=== PATIENT | male | born 1940 | race Caucasian/White ===

== ENCOUNTER → 2018-10-01 | Outpatient (CLI) | payer MEDICARE | END | disposition home or self-care (01) | LOC: RAH 14:50 | PROVIDERS: ATTEND Internal Medicine | DX: R05 Cough (principal); R16.1 Splenomegaly, not elsewhere classified | CPT/HCPCS: 71250 ==

== ENCOUNTER → 2018-10-17 | Outpatient (CLI) | payer MEDICARE ==
[~2018-10-17] MED LIST: ALBUTEROL SULFATE 0.083% 2.5 MG/3 ML INH IH ONE
== END | disposition home or self-care (01) ==
LOC: RESP 09:01
PROVIDERS: ATTEND Internal Medicine
DX: R05 Cough (principal)
CPT/HCPCS: 94060; 94727; 94729

== ENCOUNTER 2020-05-18 09:40 | Day surgery (SDC) | payer OTHER ==
[2020-05-18] VITALS (20 sets, daily range): BP systolic 56–161; BP diastolic 54–79
[~2020-05-18] VITALS: Ht 172.7 cm; Wt 77.1 kg
[~2020-05-18 09:40] MED LIST changes: -ALBUTEROL SULFATE 0.083% 2.5 MG/3 ML INH IH ONE; +FOLIC ACID PO; +METO-408 PO; +MONT10TA96 PO; +PROSTA-METTO PO; +SERT50TA12 PO
[2020-05-18] MEDS ORDERED: SODIUM CHLORIDE 0.9% 1000ML 1,000 ML IV ONE (11:20)
[2020-05-18] MEDS ORDERED: SUCCINYLCHOLINE CHLORIDE 20 MG/ML 10 ML VIAL ONE (13:15)
[2020-05-18] MEDS ORDERED: PROPOFOL 10 MG/ML 20ML VIAL IV ONE (13:15)
[2020-05-18] MEDS ORDERED: LIDOCAINE HCL 2% 20ML ONE (13:15)
[2020-05-18] MEDS ORDERED: FENTANYL CITRATE PF 50 MCG/1 ML 2ML VIAL ONE (13:31)
[2020-05-18] MEDS ORDERED: GLYCOPYRROLATE 1 MG/5 ML SYRINGE ONE (13:31)
[2020-05-18] MEDS ORDERED: ESMOLOL HCL 10 MG/ML 10 ML VIAL ONE (13:31)
[2020-05-18] MEDS ORDERED: ROCURONIUM 10MG/1ML SYR 10 MG/ML ML ONE (13:31)
[2020-05-18] MEDS ORDERED: IPRATROPIUM/ALBUTEROL SULFATE 3 ML SOLUTION IH ONE (14:31)
[2020-05-18] MEDS ORDERED: MEPERIDINE-PF 25 MG/ML SYG ONE (14:33)
[2020-05-18 20:14] LABS: APPEARANCE BODY FLUID BLOODY (CLEAR); COLOR,BODY FLUID RED (LT YELLOW); SPECIMENTYPE,BODY FLUID LAVAGE; TOTAL VOLUME,BODY FLUID 15 mL
[2020-05-18 20:15] LABS: BODY FLUID WBC 50 /cu. mm.
[2020-05-18 20:16] LABS: BODY FLUID RBC 32750 /cu. mm.
[2020-05-18 21:11] LABS: BF LYMPHOCYTE 6 %; BF OTHER CELLS 4
== END 2020-05-18 16:00 | disposition home or self-care (01) ==
LOC: DAH 09:40
PROVIDERS: ATTEND Internal Medicine
DX: R91.8 Other nonspecific abnormal finding of lung field (principal); E11.9 Type 2 diabetes mellitus without complications; I25.10 Atherosclerotic heart disease of native coronary artery without angina pectoris; I11.0 Hypertensive heart disease with heart failure; I50.9 Heart failure, unspecified; J44.9 Chronic obstructive pulmonary disease, unspecified; Z85.118 Personal history of other malignant neoplasm of bronchus and lung; Z79.899 Other long term (current) drug therapy; Z20.828 Contact with and (suspected) exposure to other viral communicable diseases
CPT/HCPCS: 31624; 31625; 71045; 87071; 87101; 87116; 87205; 87206 ×2; 88104; 88112; 88305 ×2; 88312 ×2; 89051; 94640; A4215; A4221; A4222; A4223; A4606; A4620; A4663; C9803; J0330; J2175; J2704; J3490; J7030; U0003; 31622; 31623; 31628; 36415; 76000; J3010

== ENCOUNTER 2020-11-17 07:15 | Day surgery (SDC) | payer OTHER ==
[2020-11-11 12:22] LABS: BASOPHILS % (AUTO) 0.3 % (0.0-5.0); EOSINOPHILS % (AUTO) 1.3 % (0.0-8.0); HEMATOCRIT 41.1 % (42-54); LYMPHOCYTES % (AUTO) 5.2 % (21.0-51.0); MEAN CORPUSCULAR HEMOGLOBIN 26.9 pg (27.0-33.0); MEAN CORPUSCULAR HGB CONC 30.9 g/dL (32.0-36.0); MEAN CORPUSCULAR VOLUME 87.1 fL (79-99); MONOCYTES % (AUTO) 9.7 % (3.0-13.0); PLATELET COUNT (AUTO) 175 K/uL (130-400); RED BLOOD CELL COUNT(AUTO) 4.72 MIL/uL (4.50-6.20); RED CELL DISTRIBUTION WIDTH 14.8 % (11.0-15.5); WHITE BLOOD COUNT (AUTO) 7.1 K/uL (4.8-10.8)
[2020-11-11 12:32] LABS: INR 1.05 (0.85-1.15); PROTHROMBIN TIME 11.4 SEC (9.6-11.6)
[2020-11-11 12:34] LABS: PARTIAL THROMBOPLASTIN TIME 26.6 SEC (26.3-35.5)
[2020-11-11 12:35] LABS: BILIRUBIN,TOTAL 0.3 mg/dL (0.2-1.0); CREATININE 1.4 mg/dL (0.5-1.5); POTASSIUM 4.9 mmol/L (3.5-5.1); TOTAL PROTEIN, SERUM 6.7 g/dL (6.0-8.3)
[2020-11-16 09:24] VITALS: BP 119/65
[~2020-11-17] VITALS: Ht 172.7 cm; Wt 78.9 kg
[2020-11-17] VITALS (17 sets, daily range): BP systolic 103–158; BP diastolic 27–90
[~2020-11-17 07:15] MED LIST changes: +ALBU2.5V2 IH; -FOLIC ACID PO; -MONT10TA96 PO; -PROSTA-METTO PO; -SERT50TA12 PO; +VANCOMYCIN 1GM+NS 250ML 250 ML IV SCH
[2020-11-17] MEDS ORDERED: LIDOCAINE PF 2% 5ML ABBOJECT ONE (09:10)
[2020-11-17] MEDS ORDERED: SUCCINYLCHOLINE CHLORIDE 20 MG/ML 10 ML VIAL ONE (09:10)
[2020-11-17] MEDS ORDERED: PROPOFOL 10 MG/ML 20ML VIAL IV ONE (09:11)
[2020-11-17] MEDS ORDERED: ROCURONIUM 10MG/1ML SYR 10 MG/ML ML ONE (09:11)
[2020-11-17] MEDS ORDERED: FENTANYL CITRATE PF 50 MCG/1 ML 2ML VIAL ONE ×2 (09:11→12:54)
[2020-11-17] MEDS ORDERED: LIDOCAINE 1%-EPI 1:100,000 20 ML VIAL IJ ONE (09:38)
[2020-11-17] MEDS ORDERED: EPHEDRINE SULFATE 50 MG/ML AMPULE ONE (10:00)
[2020-11-17] MEDS ORDERED: MEPERIDINE-PF 25 MG/ML SYG ONE (11:49)
[2020-11-17] MEDS ORDERED: GLYCOPYRROLATE 1 MG/5 ML SYRINGE ONE (12:02)
[2020-11-17] MEDS ORDERED: NEOSTIGMINE 5MG/5ML SYR IV ONE (12:03)
[2020-11-17] MEDS ORDERED: PHENYLEPHRINE HCL 10 MG/ML 1ML VIAL IV ONE (12:31)
== END 2020-11-17 16:00 | disposition home or self-care (01) ==
LOC: DAH 07:15
PROVIDERS: ATTEND Otolaryngology Plastic Surgery within the Head & Neck
DX: C44.42 Squamous cell carcinoma of skin of scalp and neck (principal); Z88.0 Allergy status to penicillin; Z20.822 Contact with and (suspected) exposure to COVID-19; Z79.01 Long term (current) use of anticoagulants; Z79.899 Other long term (current) drug therapy
CPT/HCPCS: 11626; 15120; 15121; 36415; 80053; 85025; 85610; 85730; 93005; A4215; A4221; A4222; A4223; A4606; A4663; A6204; A6207; A6223; C9803; J0330; J2001; J2175; J2370; J2704; J2710; J3010 ×2; J3490 ×3; J7120; U0003

== ENCOUNTER 2020-12-30 06:24 | Day surgery (SDC) | payer OTHER ==
[2020-12-28 15:06] LABS: BASOPHILS % (AUTO) 0.7 % (0.0-5.0); EOSINOPHILS % (AUTO) 2.9 % (0.0-8.0); HEMATOCRIT 37.3 % (42-54); LYMPHOCYTES % (AUTO) 22.5 % (21.0-51.0); MEAN CORPUSCULAR HEMOGLOBIN 25.6 pg (27.0-33.0); MEAN CORPUSCULAR VOLUME 85.4 fL (79-99); MONOCYTES % (AUTO) 26.7 % (3.0-13.0); NEUTROPHILS % (AUTO) 46.2 % (40.0-77.0); PLATELET COUNT (AUTO) 186 K/uL (130-400); RED BLOOD CELL COUNT(AUTO) 4.37 MIL/uL (4.50-6.20); RED CELL DISTRIBUTION WIDTH 13.9 % (11.0-15.5); WHITE BLOOD COUNT (AUTO) 3.1 K/uL (4.8-10.8)
[2020-12-28 15:16] LABS: CREATININE 1.3 mg/dL (0.5-1.5); POTASSIUM 4.9 mmol/L (3.5-5.1)
[2020-12-28 15:18] LABS: INR 1.06 (0.85-1.15); PROTHROMBIN TIME 11.5 SEC (9.6-11.6)
[2020-12-28 15:19] LABS: PARTIAL THROMBOPLASTIN TIME 28.3 SEC (26.3-35.5)
[2020-12-29 13:22] VITALS: BP 164/69
[~2020-12-30] VITALS: Ht 172.7 cm; Wt 80.3 kg
[2020-12-30] VITALS (16 sets, daily range): BP systolic 115–150; BP diastolic 55–77
[~2020-12-30 06:24] MED LIST changes: -ALBU2.5V2 IH; -METO-408 PO; +METO25TA6 PO; -VANCOMYCIN 1GM+NS 250ML 250 ML IV SCH
[2020-12-30] MEDS ORDERED: PROPOFOL 10 MG/ML 20ML VIAL IV ONE (07:13)
[2020-12-30] MEDS ORDERED: LIDOCAINE PF 100MG/5ML (2%) SYRINGE 5ML ONE (07:13)
[2020-12-30] MEDS ORDERED: SUCCINYLCHOLINE CHLORIDE 20 MG/ML 10 ML VIAL ONE (07:13)
[2020-12-30] MEDS ORDERED: FENTANYL CITRATE PF 50 MCG/1 ML 2ML VIAL ONE (07:14)
[2020-12-30] MEDS ORDERED: MULT-1203 PO (07:20)
[2020-12-30] MEDS ORDERED: LACTATED RINGERS 1000ML 1,000 ML IV ONE (07:29)
[2020-12-30] MEDS ORDERED: CEFAZOLIN SODIUM 1 GM VIAL IVP ONE (08:00)
[2020-12-30] MEDS ORDERED: LIDOCAINE 1%-EPI 1:100,000 20 ML VIAL IJ SCH (08:00)
[2020-12-30] MEDS ORDERED: GLYCOPYRROLATE 1 MG/5 ML SYRINGE ONE (08:12)
[2020-12-30] MEDS ORDERED: BACITRACIN 28.4 GM OINT TP ONE (10:13)
== END 2020-12-30 12:05 | disposition home or self-care (01) ==
LOC: DAH 06:24
PROVIDERS: ATTEND Otolaryngology Plastic Surgery within the Head & Neck
DX: C44.42 Squamous cell carcinoma of skin of scalp and neck (principal); Z20.822 Contact with and (suspected) exposure to COVID-19; C77.0 Secondary and unspecified malignant neoplasm of lymph nodes of head, face and neck; Z79.899 Other long term (current) drug therapy; Z79.01 Long term (current) use of anticoagulants; Z88.0 Allergy status to penicillin; Z88.8 Allergy status to other drugs, medicaments and biological substances
CPT/HCPCS: 11622; 13120; 36415; 38500; 71045; 80048; 85025; 85610; 85730; 87635; 93005; A4215; A4221; A4222; A4223; A4606; A4649; A4663; A4930; A6260; A6446; C9803; J0330; J2001; J2704; J3010; J3490 ×2; J7120

== ENCOUNTER 2021-09-25 18:22 | Emergency (ER) | payer OTHER ==
[~2021-09-25] VITALS: Ht 172.7 cm; Wt 74.8 kg
[~2021-09-25 18:22] MED LIST changes: +MULT-1203 PO
[2021-09-25 18:31] VITALS: BP 152/67
[2021-09-25 18:54] LABS: BASOPHILS % (AUTO) 0.2 % (0.0-5.0); EOSINOPHILS % (AUTO) 0.2 % (0.0-8.0); HEMATOCRIT 34.6 % (42-54); LYMPHOCYTES % (AUTO) 3.9 % (21.0-51.0); MEAN CORPUSCULAR HEMOGLOBIN 28.9 pg (27.0-33.0); MEAN CORPUSCULAR HGB CONC 31.8 g/dL (32.0-36.0); MEAN CORPUSCULAR VOLUME 90.8 fL (79-99); MONOCYTES % (AUTO) 9.4 % (3.0-13.0); NEUTROPHILS % (AUTO) 85.9 % (40.0-77.0); PLATELET COUNT (AUTO) 213 K/uL (130-400); RED BLOOD CELL COUNT(AUTO) 3.81 MIL/uL (4.50-6.20); RED CELL DISTRIBUTION WIDTH 14.8 % (11.0-15.5); WHITE BLOOD COUNT (AUTO) 10.9 K/uL (4.8-10.8)
[2021-09-25 19:04] LABS: CREATININE 1.4 mg/dL (0.5-1.5); POTASSIUM 3.5 mmol/L (3.5-5.1)
[2021-09-25 19:13] LABS: ALBUMIN 3.3 g/dL (3.5-5.0); BILIRUBIN,TOTAL 0.4 mg/dL (0.2-1.0); TOTAL PROTEIN, SERUM 6.3 g/dL (6.0-8.3)
[2021-09-25 19:19] LABS: APPEARANCE,URINE Clear (CLEAR); BILIRUBIN,URINE Negative (NEGATIVE); COLOR,URINE Yellow (YELLOW); GLUCOSE, URINE (UA) Negative (NEGATIVE); KETONES,URINE Negative (NEGATIVE); LEUKOCYTE ESTERASE ,URINE Negative (NEGATIVE); NITRATE,URINE Negative (NEGATIVE); OCCULT BLOOD,URINE Negative (NEGATIVE); PH,URINE 7.5 (5.0-8.0); PROTEIN,URINE Negative (NEGATIVE); UROBILINOGEN,URINE 0.2 mg/dL (0.2-1.0)
[2021-09-25] MEDS ORDERED: ONDANSETRON 4MG INJ IVP STA (20:26)
[2021-09-25] MEDS ORDERED: 0.9% NACL 500ML IV.SOLN 500 ML IV ONE (20:30)
== END 2021-09-25 22:45 | disposition home or self-care (01) ==
LOC: EDH 18:22
DX: C76.0 Malignant neoplasm of head, face and neck (principal); R11.2 Nausea with vomiting, unspecified; Z88.0 Allergy status to penicillin; Z88.6 Allergy status to analgesic agent; Z79.899 Other long term (current) drug therapy
CPT/HCPCS: 36415; 71045; 80053; 81003; 82550; 83690; 84484; 85025; 93005; 96361; 96374; 99285; J2405; J7040